=== PATIENT | female | born 1990 | race Asian ===

== ENCOUNTER 2018-10-03 12:08 | Inpatient (IN) | payer SELFPAY ==
[~2018-10-03] VITALS: Ht 165.1 cm; Wt 59.9 kg
[2018-10-03] MEDS ORDERED: OSC500 PO (12:19)
[2018-10-03] MEDS ORDERED: PREN-380 PO (12:19)
[2018-10-03] MEDS ORDERED: FERR324T11 PO (12:19)
[2018-10-03] MEDS ORDERED: AMPICILLIN 2,000 MG in NACL 0.9% 100 ML IV SCH (12:46)
[2018-10-03] MEDS ORDERED: AMPICILLIN 2,000 MG VIAL ONE ×3 (13:34→21:10)
[2018-10-03] MEDS ORDERED: BETAMETH ACET/BETAMETH NA PH 30 MG/5 ML VIAL IM SCH (14:02)
[2018-10-03] MEDS ORDERED: BETAMETH ACET/BETAMETH NA PH 30 MG/5 ML VIAL IM ONE (14:19)
[2018-10-03 15:05] LABS: BASOPHILS % (AUTO) 0.3 % (0.0-2.0); EOSINOPHILS % (AUTO) 0.6 % (0.0-4.0); HEMATOCRIT 37.1 % (36-48); HEMOGLOBIN 12.4 g/dL (12.0-16.0); LYMPHOCYTES # (AUTO) 1.4 K/uL (2.5-16.5); LYMPHOCYTES % (AUTO) 17.2 % (20.5-51.1); MEAN CORPUSCULAR HEMOGLOBIN 30 pg (27-31); MEAN CORPUSCULAR HGB CONC 34 g/dL (33-37); MEAN CORPUSCULAR VOLUME 90.9 fL (80-94); MONOCYTES # (AUTO) 0.6 K/uL (0.8-1.0); MONOCYTES % (AUTO) 7.8 % (1.7-9.3); NEUTROPHILS # (AUTO) 6.1 K/uL (1.8-7.7); NEUTROPHILS % (AUTO) 74.1 % (42.2-75.2); PLATELET COUNT (AUTO) 147 K/uL (140-450); RED BLOOD CELL COUNT(AUTO) 4.09 MIL/uL (4.20-5.40); RED CELL DISTRIBUTION WIDTH 13.5 % (11.6-13.7); WHITE BLOOD COUNT (AUTO) 8.2 K/uL (4.8-10.8)
[2018-10-03 15:46] LABS: APPEARANCE,URINE HAZY (CLEAR); BILIRUBIN,URINE NEGATIVE (NEGATIVE); BLOOD, URINE NEGATIVE (NEGATIVE); COLOR,URINE YELLOW (YELLOW); LEUKOCYTE ESTERASE ,URINE NEGATIVE (NEGATIVE); NITRITE, URINE NEGATIVE (NEGATIVE); PH,URINE 8.5 (5.0-9.0); UGLUCOSE NEGATIVE (NEGATIVE)
[2018-10-03] MEDS: LACTATED RINGERS 1,000 ML IV SCH (19:35)
[2018-10-03] MEDS ORDERED: NALBUPHINE 10 MG/ML AMP IVP PRN (20:20)
[2018-10-03] MEDS ORDERED: TERBUTALINE 2.5 MG TAB ONE (21:11)
[2018-10-03] MEDS: DOCUSATE SODIUM 100 MG GELCAP PO SCH (21:16)
[2018-10-03] MEDS: AMPICILLIN 2,000 MG in NACL 0.9% 100 ML IV SCH (21:18)
[2018-10-03] MEDS: TERBUTALINE 2.5 MG TAB PO SCH (21:19)
[2018-10-03] MEDS: metroNIDAZOLE 500 MG TAB PO SCH (21:37)
[2018-10-03] MEDS ORDERED: metroNIDAZOLE 500 MG TAB ONE (21:38)
[2018-10-04] MEDS: AMPICILLIN 2,000 MG in NACL 0.9% 100 ML IV SCH ×6 (01:32→21:30)
[2018-10-04] MEDS ORDERED: AMPICILLIN 2,000 MG VIAL ONE ×6 (01:38→20:57)
[2018-10-04] MEDS ORDERED: BETAMETH ACET/BETAMETH NA PH 30 MG/5 ML VIAL IM SCH (02:00)
[2018-10-04] MEDS ORDERED: BETAMETH ACET/BETAMETH NA PH 30 MG/5 ML VIAL IM ONE (02:29)
[2018-10-04] MEDS: TERBUTALINE 2.5 MG TAB PO SCH ×4 (03:07→21:30)
[2018-10-04] MEDS ORDERED: TERBUTALINE 2.5 MG TAB ONE ×4 (03:18→20:58)
[2018-10-04 06:19] LABS: BASOPHILS % (AUTO) 0.1 % (0.0-2.0); HEMATOCRIT 34.9 % (36-48); HEMOGLOBIN 11.5 g/dL (12.0-16.0); LYMPHOCYTES % (AUTO) 8.4 % (20.5-51.1); MEAN CORPUSCULAR HEMOGLOBIN 30 pg (27-31); MEAN CORPUSCULAR HGB CONC 33 g/dL (33-37); MEAN CORPUSCULAR VOLUME 91.7 fL (80-94); MONOCYTES # (AUTO) 0.2 K/uL (0.8-1.0); NEUTROPHILS # (AUTO) 10.4 K/uL (1.8-7.7); NEUTROPHILS % (AUTO) 89.5 % (42.2-75.2); PLATELET COUNT (AUTO) 155 K/uL (140-450); RED BLOOD CELL COUNT(AUTO) 3.81 MIL/uL (4.20-5.40); RED CELL DISTRIBUTION WIDTH 13.6 % (11.6-13.7); WHITE BLOOD COUNT (AUTO) 11.6 K/uL (4.8-10.8)
--- NOTE | 2018-10-04 08:35 | NUR ---
PATIENT HAS BEEN SCREENED AND CATEGORIZED LOW NUTRITION RISK. PATIENT WILL BE SEEN WITHIN 7 DAYS OF ADMISSION. 10/10/[address]
[2018-10-04] MEDS: metroNIDAZOLE 500 MG TAB PO SCH ×3 (09:27→17:30)
[2018-10-04] MEDS: LACTATED RINGERS 1,000 ML IV SCH ×2 (12:59→23:25)
[2018-10-04] MEDS ORDERED: DINOPROSTONE 10 MG SUPP VG ONE (19:00)
[2018-10-04] MEDS: DOCUSATE SODIUM 100 MG GELCAP PO SCH (21:07)
[2018-10-05] MEDS ORDERED: AMPICILLIN 2,000 MG VIAL ONE ×6 (00:56→21:12)
[2018-10-05] MEDS: AMPICILLIN 2,000 MG in NACL 0.9% 100 ML IV SCH ×6 (01:30→21:30)
[2018-10-05] MEDS: metroNIDAZOLE 500 MG TAB PO SCH ×3 (08:46→17:31)
[2018-10-05] MEDS: DOCUSATE SODIUM 100 MG GELCAP PO SCH (08:46)
[2018-10-05 09:19] LABS: BASOPHILS % (AUTO) 0.1 % (0.0-2.0); HEMATOCRIT 30.9 % (36-48); HEMOGLOBIN 10.6 g/dL (12.0-16.0); LYMPHOCYTES # (AUTO) 0.8 K/uL (2.5-16.5); LYMPHOCYTES % (AUTO) 7.8 % (20.5-51.1); MEAN CORPUSCULAR HEMOGLOBIN 31 pg (27-31); MEAN CORPUSCULAR HGB CONC 34 g/dL (33-37); MEAN CORPUSCULAR VOLUME 90.3 fL (80-94); MONOCYTES # (AUTO) 0.8 K/uL (0.8-1.0); MONOCYTES % (AUTO) 7.6 % (1.7-9.3); NEUTROPHILS # (AUTO) 8.7 K/uL (1.8-7.7); NEUTROPHILS % (AUTO) 84.5 % (42.2-75.2); PLATELET COUNT (AUTO) 136 K/uL (140-450); RED BLOOD CELL COUNT(AUTO) 3.42 MIL/uL (4.20-5.40); RED CELL DISTRIBUTION WIDTH 13.7 % (11.6-13.7); WHITE BLOOD COUNT (AUTO) 10.3 K/uL (4.8-10.8)
[2018-10-05] MEDS: LACTATED RINGERS 1,000 ML IV SCH (10:29)
[2018-10-05] MEDS ORDERED: OXYTOCIN 20 UNITS/LR PREMIX 1,000 ML IV ONE (22:00)
[2018-10-05] MEDS ORDERED: OXYTOCIN 20 UNITS in LACTATED RINGERS 1,000 ML IV SCH (22:00)
[2018-10-06] MEDS ORDERED: BUPIVACAINE 0.125%/NS PREMIX 250 ML ONE (01:13)
[2018-10-06] MEDS ORDERED: AMPICILLIN 2,000 MG VIAL ONE ×3 (01:29→09:41)
[2018-10-06] MEDS ORDERED: BUPIVACAINE 0.125%/NS PREMIX 250 ML EPI SCH (01:55)
[2018-10-06] MEDS: AMPICILLIN 2,000 MG in NACL 0.9% 100 ML IV SCH ×3 (02:00→09:36)
[2018-10-06] MEDS ORDERED: OXYTOCIN 10 UNITS/ML VIAL ONE (08:38)
[2018-10-06] MEDS ORDERED: LIDOCAINE 1% 500 MG/50 ML VIAL ONE (09:22)
[2018-10-06] MEDS: metroNIDAZOLE 500 MG TAB PO SCH ×2 (09:33→21:08)
[2018-10-06] MEDS ORDERED: OXYTOCIN 20 UNITS in LACTATED RINGERS 1,000 ML IV SCH ×3 (12:20)
[2018-10-06] MEDS ORDERED: BENZOCAINE/MENTHOL 20%-0.5% 60 GM CAN TP PRN (12:20)
[2018-10-06] MEDS ORDERED: ACETAMINOPHEN 325 MG TAB PO PRN (12:20)
[2018-10-06] MEDS ORDERED: DOCUSATE SODIUM 100 MG GELCAP PO PRN (12:20)
[2018-10-06] MEDS ORDERED: MEASLES, MUMPS, AND RUBELLA 1 VIAL SQVAC PRN (12:20)
[2018-10-06] MEDS ORDERED: BISACODYL 5 MG TABEC PO PRN (12:20)
[2018-10-06] MEDS: IBUPROFEN 600 MG TAB PO PRN (16:15)
[2018-10-06] MEDS: DOCUSATE SODIUM 100 MG GELCAP PO SCH (21:08)
[2018-10-07] MEDS: IBUPROFEN 600 MG TAB PO PRN (02:43)
[2018-10-07 08:06] LABS: BASOPHILS % (AUTO) 0.2 % (0.0-2.0); EOSINOPHILS # (AUTO) 0.1 K/uL (0-0.4); HEMATOCRIT 36.1 % (36-48); HEMOGLOBIN 12.2 g/dL (12.0-16.0); LYMPHOCYTES # (AUTO) 1.8 K/uL (2.5-16.5); LYMPHOCYTES % (AUTO) 18.8 % (20.5-51.1); MEAN CORPUSCULAR HEMOGLOBIN 31 pg (27-31); MEAN CORPUSCULAR HGB CONC 34 g/dL (33-37); MONOCYTES # (AUTO) 0.9 K/uL (0.8-1.0); MONOCYTES % (AUTO) 8.7 % (1.7-9.3); NEUTROPHILS # (AUTO) 6.9 K/uL (1.8-7.7); NEUTROPHILS % (AUTO) 71.3 % (42.2-75.2); PLATELET COUNT (AUTO) 133 K/uL (140-450); RED BLOOD CELL COUNT(AUTO) 3.97 MIL/uL (4.20-5.40); WHITE BLOOD COUNT (AUTO) 9.7 K/uL (4.8-10.8)
[2018-10-07] MEDS: DOCUSATE SODIUM 100 MG GELCAP PO SCH (09:20)
[2018-10-07] MEDS ORDERED: BISACODYL 10 MG SUPP RC SCH (14:30)
== END 2018-10-07 18:00 | disposition home or self-care (01) | DRG 807 ==
LOC: OBSVTOIN 12:08 → MLD 12:08 → MFCC 10-04 13:45 → MLD 10-05 19:10 → MFCC 10-06 15:30
PROVIDERS: ADMIT Obstetrics & Gynecology; ATTEND Obstetrics & Gynecology
PROC: 10E0XZZ Delivery of Products of Conception, External Approach (ICD-10-PCS; principal; 2018-10-06)
PROC: 3E0R3BZ Introduction of Anesthetic Agent into Spinal Canal, Percutaneous Approach (ICD-10-PCS; 2018-10-06)
PROC: 00HU33Z Insertion of Infusion Device into Spinal Canal, Percutaneous Approach (ICD-10-PCS; 2018-10-06)
PROC: 3E033VJ Introduction of Other Hormone into Peripheral Vein, Percutaneous Approach (ICD-10-PCS; 2018-10-06)
PROC: 3E0234Z Introduction of Serum, Toxoid and Vaccine into Muscle, Percutaneous Approach (ICD-10-PCS; 2018-10-06)
PROC: 3E0134Z Introduction of Serum, Toxoid and Vaccine into Subcutaneous Tissue, Percutaneous Approach (ICD-10-PCS; 2018-10-06)
PROC: 0UQKXZZ Repair Hymen, External Approach (ICD-10-PCS; 2018-10-06)
PROC: 0UQMXZZ Repair Vulva, External Approach (ICD-10-PCS; 2018-10-06)
DX: O42.913 Preterm premature rupture of membranes, unspecified as to length of time between rupture and onset of labor, third trimester (principal); Z37.0 Single live birth; Z3A.36 36 weeks gestation of pregnancy; O99.824 Streptococcus B carrier state complicating childbirth; Z23 Encounter for immunization; O70.0 First degree perineal laceration during delivery
CPT/HCPCS: 36415; 51702; 59025; 59409; 76815; 81003; 85025; 85379; 86592; 86886; 86900; 86901; 87653-90; J0290; J0702; J2001; J2590; J3490; J7120; Q0092